=== PATIENT | male | born 1950 ===

== ENCOUNTER 2020-10-25 08:58 | Inpatient (IN) | payer OTHER, MEDICARE ==
[2020-10-25] MEDS ORDERED: ASPIRIN 325 MG TAB PO ONE (09:21)
--- NOTE | 2020-10-25 09:52 | XRay Report ---
CHEST 2 VIEWS INDICATION: SOB, CP. COMPARISON: None FINDINGS: Support devices: None. Heart: Within normal limits. Lungs/pleura: The interstitium appears diffusely prominent throughout both lungs. This may represent fibrotic changes although interstitial infiltrates or atypical pneumonia are not excluded. No pleura l effusion or pneumothorax. Additional findings: None. IMPRESSION: Prominent interstitium suggesting pulmonary fibrosis/interstitial lung disease. Bilateral infiltrates could be considered but are thought less likely. If further evaluation is warranted, CT chest with h igh-resolution protocol should provide the most information. Signer Name: Paul Sanchez Jr, MD Signed: 10/25/2020 9:48 AM Workstation Name: [id number]
[2020-10-25 11:25] LABS: Basophils % (Auto) 0.7 % (0.0-1.8); Eosinophils # (Auto) 0.2 K/mm3 (0.0-0.4); Eosinophils % (Auto) 3.9 % (0.0-4.3); Hematocrit 40.3 % (35.5-45.6); Hemoglobin 12.7 gm/dl (11.8-15.2); Lymphocytes # (Auto) 1.3 K/mm3 (1.2-5.4); Lymphocytes % (Auto) 24.7 % (13.4-35.0); Mean Corpuscular HGB Conc 32 % (32-34); Mean Corpuscular Volume 93 fl (84-94); Monocytes # (Auto) 0.8 K/mm3 (0.0-0.8); Monocytes % (Auto) 15.1 % (0.0-7.3); Platelet Count 170 K/mm3 (140-440); Red Blood Count 4.35 M/mm3 (3.65-5.03); Red Cell Distribution Width 16.2 % (13.2-15.2)
[2020-10-25 11:40] LABS: Alanine Aminotransferase 19 units/L (7-56); Albumin 3.9 g/dL (3.9-5); BUN/Creatinine Ratio 25; Blood Urea Nitrogen 25 mg/dL (9-20); Calcium 9.6 mg/dL (8.4-10.2); Hemolysis Index 33
[2020-10-25] MEDS ORDERED: oxyCODONE /ACETAMINOPHEN 5-325MG TAB PO ONE (12:25)
--- NOTE | 2020-10-25 13:49 | Emergency Department Report ---
ED Chest Pain HPI - General Chief Complaint: Dyspnea/Respdistress Stated Complaint: SOB/CHEST PAIN Time Seen by Provider: 10/25/20 13:26 Source: patient Mode of arrival: Ambulatory Limitations: No Limitations - History of Present Illness Initial Comments: This is a 69-year-old -[place] male who presents to the emergency department fom home, with a complaint of shortness of breath and chest pain. Patient was found to have a room air pulse ox of about 70% initially through triage and was placed on 5 L oxygen via nasal cannula and went up to about 95%. Patient says that he has been having a 1.5-week history of some intermittent shortness of breath. However, yesterday while the patient was fishing, the patient says that he had increased shortness of breath with only minimal exertion and had some generalized chest discomfort. The chest pain has since resolved, but the shortness of breath continues. The patient has a history of hypertension and diabetes. He also has a history of a DVT from 2016, but is not on anticoagulation. He is a former smoker. Patient recently traveled down to [facility] and back. No sick contacts at home. The patient is vaccinated against COVID-19 after getting the J&J vaccine. - Related Data Allergies Allergy/AdvReac Type Severity Reaction Status Date / Time No Known Allergies Allergy Unverified 10/25/20 09:15 Heart Score - HEART Score History: Slightly suspicious EKG: Normal Age: > 65 Risk factors: 1-2 risk factors Troponin: < normal limit HEART Score: 3 - EKG Read Time Time EKG Completed: 09:07 EKG Read Time: 09:20 - Critical Actions Critical Actions: 0-3 pts:0.9-1.7%risk of adverse cardiac event.Candidate for discharge ED Review of Systems ROS: Stated complaint: SOB/CHEST PAIN Other details as noted in HPI ED Past Medical Hx - Past Medical History Previous Medical History?: Yes Hx Hypertension: Yes Hx Diabetes: Yes Hx COPD: No Additional medical history: Gout - Surgical History Past Surgical History?: No ED Physical Exam - General Limitations: No Limitations - Other Other exam information: GENERAL: The patient is well-developed well-nourished. HENT: Normocephalic. Atraumatic. Patient has moist mucous membranes. EYES: Extraocular motions are intact. Pupils equal reactive to light bilaterally. NECK: Supple. Trachea is midline. CHEST/LUNGS: There is mild rhonchi heard bilaterally. Tachypnea but no accessory muscle use. HEART/CARDIOVASCULAR: Regular. There is no tachycardia. There is no murmur. ABDOMEN: Abdomen is soft, nontender. Patient has normal bowel sounds. There is no abdominal distention. SKIN: Skin is warm and dry. NEURO: The patient is awake, alert, and oriented. The patient is cooperative. The patient has no focal neurologic deficits. Normal speech. MUSCULOSKELETAL: There is no tenderness or deformity. There is no limitation range of motion. ED Course Vital Signs 10/25/20 10/25/20 10/25/20 09:14 13:45 14:02 Temperature 97.5 F L 98.6 F Pulse Rate 62 61 Respiratory 24 16 20 Rate Blood Pressure 125/62 Blood Pressure 138/72 [Left] O2 Sat by Pulse 81 L 98 Oximetry 10/25/20 10/25/20 10/25/20 14:03 14:31 15:01 Temperature Pulse Rate 59 L 63 Respiratory 16 11 L Rate Blood Pressure 172/103 168/85 Blood Pressure [Left] O2 Sat by Pulse 98 99 99 Oximetry 10/25/20 10/25/20 10/25/20 15:31 16:01 16:31 Temperature 98.6 F Pulse Rate 61 64 Respiratory 13 13 Rate Blood Pressure 176/101 168/90 Blood Pressure [Left] O2 Sat by Pulse 97 95 Oximetry - Pulse Oximetry Interpretation Digit-Finger Initial Pulse Oximetry Readin O2 Sat by Pulse Oximetry: 82 Actions Taken: increased FIO2 to (4 L nasal cannula) JONNY score - Jonny Score Age > 65: (1) Yes Aspirin use within the Past 7 Days: (0) No 3 or more CAD Risk Factors: (0) No 2 or more Angina events in past 24 hrs: (1) Yes Known CAD with more than 50% Stenosis: (0) No Elevated Cardiac Markers: (0) No ST Deviation Greater than 0.5mm: (0) No JONNY Score: 2 ED Medical Decision Making - Lab Data Result diagrams: 10/25/20 10:52 10/25/20 10:52 Lab Results 10/25/20 10/25/20 10/25/20 Range/Units 10:52 10:52 11:55 WBC 5.2 (4.5-11.0) K/mm3 RBC 4.35 (3.65-5.03) M/mm3 Hgb 12.7 (11.8-15.2) gm/dl Hct 40.3 (35.5-45.6) % MCV 93 (84-94) fl MCH 29 (28-32) pg MCHC 32 (32-34) % RDW 16.2 H (13.2-15.2) % Plt Count 170 (140-440) K/mm3 Lymph % (Auto) 24.7 (13.4-35.0) % Saunders % (Auto) 15.1 H (0.0-7.3) % Eos % (Auto) 3.9 (0.0-4.3) % Baso % (Auto) 0.7 (0.0-1.8) % Lymph # (Auto) 1.3 (1.2-5.4) K/mm3 Saunders # (Auto) 0.8 (0.0-0.8) K/mm3 Eos # (Auto) 0.2 (0.0-0.4) K/mm3 Baso # (Auto) 0.0 (0.0-0.1) K/mm3 Seg Neutrophils % 55.6 (40.0-70.0) % Seg Neutrophils # 2.9 (1.8-7.7) K/mm3 D-Dimer (0-234) ng/mlDDU Sodium 143 (137-145) mmol/L Potassium 5.6 H (3.6-5.0) mmol/L Chloride 108.7 H (98-107) mmol/L Carbon Dioxide 22 (22-30) mmol/L Anion Gap 18 mmol/L BUN 25 H (9-20) mg/dL Creatinine 1.0 (0.8-1.3) mg/dL Estimated GFR > 60 ml/min BUN/Creatinine Ratio 25 % Glucose 114 H (75-100) mg/dL Calcium 9.6 (8.4-10.2) mg/dL Ferritin (30.0-300.0) ng/mL Total Bilirubin 0.40 (0.1-1.2) mg/dL AST 34 (5-40) units/L ALT 19 (7-56) units/L Alkaline Phosphatase 78 (35-129) units/L Troponin T < 0.010 < 0.010 (0.00-0.029) ng/mL NT-Pro-B Natriuret Pep (0-900) pg/mL Total Protein 7.4 (6.3-8.2) g/dL Albumin 3.9 (3.9-5) g/dL Albumin/Globulin Ratio 1.1 % 10/25/20 10/25/20 10/25/20 Range/Units 14:50 14:50 15:07 WBC (4.5-11.0) K/mm3 RBC (3.65-5.03) M/mm3 Hgb (11.8-15.2) gm/dl Hct (35.5-45.6) % MCV (84-94) fl MCH (28-32) pg MCHC (32-34) % RDW (13.2-15.2) % Plt Count (140-440) K/mm3 Lymph % (Auto) (13.4-35.0) % Saunders % (Auto) (0.0-7.3) % Eos % (Auto) (0.0-4.3) % Baso % (Auto) (0.0-1.8) % Lymph # (Auto) (1.2-5.4) K/mm3 Saunders # (Auto) (0.0-0.8) K/mm3 Eos # (Auto) (0.0-0.4) K/mm3 Baso # (Auto) (0.0-0.1) K/mm3 Seg Neutrophils % (40.0-70.0) % Seg Neutrophils # (1.8-7.7) K/mm3 D-Dimer 307.40 H (0-234) ng/mlDDU Sodium (137-145) mmol/L Potassium (3.6-5.0) mmol/L Chloride (98-107) mmol/L Carbon Dioxide (22-30) mmol/L Anion Gap mmol/L BUN (9-20) mg/dL Creatinine (0.8-1.3) mg/dL Estimated GFR ml/min BUN/Creatinine Ratio % Glucose (75-100) mg/dL Calcium (8.4-10.2) mg/dL Ferritin (30.0-300.0) ng/mL Total Bilirubin (0.1-1.2) mg/dL AST (5-40) units/L ALT (7-56) units/L Alkaline Phosphatase (35-129) units/L Troponin T < 0.010 (0.00-0.029) ng/mL NT-Pro-B Natriuret Pep 737.3 (0-900) pg/mL Total Protein (6.3-8.2) g/dL Albumin (3.9-5) g/dL Albumin/Globulin Ratio % // Range/Units 16:21 WBC (4.5-11.0) K/mm3 RBC (3.65-5.03) M/mm3 Hgb (11.8-15.2) gm/dl Hct (35.5-45.6) % MCV (84-94) fl MCH (28-32) pg MCHC (32-34) % RDW (13.2-15.2) % Plt Count (140-440) K/mm3 Lymph % (Auto) (13.4-35.0) % Saunders % (Auto) (0.0-7.3) % Eos % (Auto) (0.0-4.3) % Baso % (Auto) (0.0-1.8) % Lymph # (Auto) (1.2-5.4) K/mm3 Saunders # (Auto) (0.0-0.8) K/mm3 Eos # (Auto) (0.0-0.4) K/mm3 Baso # (Auto) (0.0-0.1) K/mm3 Seg Neutrophils % (40.0-70.0) % Seg Neutrophils # (1.8-7.7) K/mm3 D-Dimer (0-234) ng/mlDDU Sodium (137-145) mmol/L Potassium (3.6-5.0) mmol/L Chloride (98-107) mmol/L Carbon Dioxide (22-30) mmol/L Anion Gap mmol/L BUN (9-20) mg/dL Creatinine (0.8-1.3) mg/dL Estimated GFR ml/min BUN/Creatinine Ratio % Glucose (75-100) mg/dL Calcium (8.4-10.2) mg/dL Ferritin 51.1 (30.0-300.0) ng/mL Total Bilirubin (0.1-1.2) mg/dL AST (5-40) units/L ALT (7-56) units/L Alkaline Phosphatase (35-129) units/L Troponin T (0.00-0.029) ng/mL NT-Pro-B Natriuret Pep (0-900) pg/mL Total Protein (6.3-8.2) g/dL Albumin (3.9-5) g/dL Albumin/Globulin Ratio % - EKG Data -: EKG Interpreted by Me EKG shows normal: sinus rhythm, axis, intervals, QRS complexes, ST-T waves Rate: normal - EKG Data When compared to previous EKG there are: previous EKG unavailable Interpretation: normal EKG - Radiology Data Radiology results: report reviewed CHEST 2 VIEWS INDICATION: SOB, CP. COMPARISON: None FINDINGS: Support devices: None. Heart: Within normal limits. Lungs/pleura: The interstitium appears diffusely prominent throughout both lungs. This may represent fibrotic changes although interstitial infiltrates or atypical pneumonia are not excluded. No pleural effusion or pneumothorax. Additional findings: None. IMPRESSION: Prominent interstitium suggesting pulmonary fibrosis/interstitial lung disease. Bilateral infiltrates could be considered but are thought less likely. If further evaluation is warranted, CT chest with high-resolution protocol should provide the most information. CTA CHEST WITH IV CONTRAST INDICATION: SOB, elevated dimer CONTRAST: 100 cc Omnipaque 350 IV COMPARISON: Chest x-ray today Three-plane MIP reconstructions were produced. All CT scans at this location are performed using CT dose reduction for ALARA by means of automated exposure control. FINDINGS: No significant axillary or chest wall abnormalities are seen. Visualized portions of the upper abdomen show fatty attrition of the liver but no obvious acute abnormalities. Moderate hiatal hernia is seen. Moderate lymphadenopathy is noted throughout the mediastinum but most prominently in the right paratracheal region. Mild left hilar nadine prominence is seen with moderate right hilar nadine prominence. No obvious endobronchial lesions are seen. No pneumothorax or pneumomediastinum are noted. Views of the lung martins show moderately prominent and extensive bilateral chronic pulmonary changes. This includes mostly periphe ral emphysematous change as well as a moderate amount of peripheral honeycombing and fibrosis. Mild fibrosis is seen more centrally as well. Mild bronchiectasis is seen, most prominently in the right lower lobe. No areas of consolidation are seen. There are mild patchy areas of groundglass type density which are most noticeable in the right upper lobe and especially in these areas I cannot exclude the possibility of superimposed interstitial infiltrate/pneumonitis. In the lateral periphery of the left upper lobe on image 198 of series 3, a solid nodule is seen measuring 8 mm adjacent to the pleural surface. No other discrete nodules or masses are seen. Aorta shows no aneurysmal dilatation or evidence of dissection. Moderate opacification of the pulmonary arterial system was achieved. I do not see evidence of pulmonary thromboembolism. IMPRESSION: 1. No evidence of pulmonary thromboembolism 2. Moderate chronic pulmonary changes as above 3. Question of superimposed right upper lobe interstitial infiltrate which could include viral pneumonitis but is nonspecific and of unclear chronicity 4. Moderate adenopathy is seen in the mediastinum and right hilum with mild adenopathy in the left hilum. Possibly this is reactive though might suggest a process such as sarcoidosis. Neoplasia such as lymphoma is not fully excluded. Follow-up is recommended. - Medical Decision Making This patient presents to the emergency department with a complaint of pr ogressively worsening shortness of breath over the past 1.5 weeks and an episode of chest pain yesterday. He was found to be hypoxic through triage at about 70%. He went up to 95% with 5 L via nasal cannula. When the patient came back to room #7, at the time of my initial examination, the patient once again did not have supplemental oxygen on and was seen at 80 to 82%. The patient went up to 94% on 4 L via nasal cannula. Chest x-ray shows bilateral interstitial changes that could be opacities versus fibrosis versus other. Given his symptoms and his hypoxia, and despite the fact that he was vaccinated by [employer] vaccine, the patient was placed in droplet precautions and patient isolation. Patient's labs have been mostly unremarkable except for hyperkalemia of 5.6, a slightly elevated D-dimer level and slightly elevated LDH. The patient was given some Kayexalate, Decadron and IV antibiotics. He will be admitted to the hospital for further evaluation and treatment and was accepted for patient by the hospitalist, Dr. Toscano. Critical Care Time: Yes Critical care time in (mins) excluding proc time.: 35 Critical care attestation.: If time is entered above; I have spent that time in minutes in the direct care of this critically ill patient, excluding procedure time. Critical care time was spent on this patient in doing his initial evaluation, multiple reevaluations, ordering and interpretation of labs and imaging, IV Decadron, IV antibiotics, supplemental oxygen for the hypoxia, multiple discussions with the patient. Critical Care Time: 35 minutes ED Disposition Clinical Impression: Hypoxia, Acute respiratory distress, Hyperkalemia Hypertension Qualifiers: Hypertension type: primary hypertension Qualified Code(s): I10 - Essential (primary) hypertension Disposition: OP ADMIT IP TO THIS HOSP Is pt being admited?: Yes Condition: Serious Time of Disposition: 18:06
[2020-10-25] MEDS ORDERED: dexAMETHasone 4 MG/ML VIAL IV ONE (14:46)
[2020-10-25] MEDS ORDERED: IPRATROPIUM/ALBUTEROL SULFATE 3 ML AMPUL.NEB IH ONE (14:46)
[2020-10-25] MEDS ORDERED: cefTRIAXone/NS 1 GM/50 ML 1 GM/50 ML BAG IV ONE (14:47)
[2020-10-25] MEDS ORDERED: AZITHROMYCIN/NS 500 MG/250 ML 500 MG/250 ML BAG IV ONE (14:47)
[2020-10-25] MEDS ORDERED: SODIUM POLYSTYRENE 15 GM/60 ML ORAL LIQD PO ONE (16:07)
[2020-10-25] MEDS ORDERED: oxyCODONE /ACETAMINOPHEN 5-325MG TAB PO PRN (17:07)
[2020-10-25] MEDS ORDERED: ALBUTEROL 2.5 MG/3 ML NEBU IH PRN (17:07)
[2020-10-25] MEDS ORDERED: ONDANSETRON 4 MG/2 ML INJ IV PRN (17:07)
[2020-10-25] MEDS ORDERED: HYDROmorphone 1 MG/1 ML INJ IV PRN (17:07)
[2020-10-25] MEDS ORDERED: ACETAMINOPHEN 325 MG TAB PO PRN (17:07)
--- NOTE | 2020-10-25 17:10 | History and Physical Report ---
History of Present Illness Chief complaint: I cannot catch my breath History of present illness: 69 YO Male with Obesity Hypoventilation Syndrome, HTN, DM, Gout, DVT no on therapeutic anticoagulation presents to ED for evaluation. Pt reports " I cannot catch my breath". Patient states that he has experienced shortness of breath over the past 10 days with persistently worsening symptoms over the same timeframe. Patient acknowledges decreased exercise tolerance, dry cough, fatigue, malaise, decreased exercise tolerance, as well as chest discomfort. Patient transported to [facility] via private vehicle for further care and evaluation of the aforementioned symptoms. The patient is seen and evaluated in the emergency department. All lab and imaging studies reviewed. Patient found to have a pulse oximetry of 76% on room air and was immediately placed on supplemental oxygen with mild improvement in symptoms and pulse oximetry. Patient underwent chest x-ray which revealed bilateral pneumonia. Patient admitted to medical floor and initiated on pneumonia protocol as well as coronavirus protocol. Patient denies fever, chills, palpitation, skin rash, recent ill contacts, or known exposure to COVID-19. Patient is currently fully vaccinated after receiving the [employer] vaccine. No prior admission fo r review. No medication listed for reconciliation at time of admission. Advanced care planning conducted in ED. Past History Past Medical History: diabetes, DVT, hypertension, other (See HPI) Past Surgical History: No surgical history Social history: . denies: smoking, alcohol abuse, prescription drug abuse Family history: diabetes, hypertension Medications and Allergies Allergies Allergy/AdvReac Type Severity Reaction Status Date / Time No Known Allergies Allergy Unverified 10/25/20 09:15 Active Meds: Active Medications Acetaminophen (Acetaminophen 325 Mg Tab) 650 mg PO Q4H PRN PRN Reason: Pain MILD(1-3)/Fever >100.5/SCHMIDT Albuterol (Albuterol 2.5 Mg/3 Ml Nebu) 2.5 mg IH Q4HRT PRN PRN Reason: Shortness Of Breath Hydromorphone HCl (Hydromorphone 1 Mg/1 Ml Inj) 0.5 mg IV Q12H PRN PRN Reason: Pain , Severe (7-10) Ceftriaxone Sodium (Rocephin/Ns 2 Gm/100 Ml) 2 gm in 100 mls @ 200 mls/hr IV Q24H BETSY; Protocol Azithromycin (Zithromax/Ns) 500 mg in 250 mls @ 250 mls/hr IV Q24H BETSY; P rotocol Ondansetron HCl (Ondansetron 4 Mg/2 Ml Inj) 4 mg IV Q8H PRN PRN Reason: Nausea And Vomiting Oxycodone/Acetaminophen (Oxycodone /Acetaminophen 5-325mg Tab) 1 tab PO Q12H PRN PRN Reason: Pain, Moderate (4-6) Sodium Chloride (Sodium Chloride 0.9% 10 Ml Flush Syringe) 10 ml IV BID BETSY Sodium Chloride (Sodium Chloride 0.9% 10 Ml Flush Syringe) 10 ml IV PRN PRN PRN Reason: LINE FLUSH Review of Systems Constitutional: weakness, malaise, lethargy, no weight loss, no sweats Ears, nose, mouth and throat: no ear pain, no decreased hearing, no nose pain, no nasal congestion, no nasal discharge Cardiovascular: no chest pain, no palpitations, no edema Respiratory: cough, shortness of breath, no excessive sputum, no hemoptysis Gastrointestinal: no abdominal pain, no nausea, no vomiting, no diarrhea Genitourinary Male: no hematuria, no flank pain, no discharge, no urinary frequency Rectal: no pain, no incontinence, no bleeding Musculoskeletal: no neck stiffness, no neck pain, no arm numbness/tingling, no low back pain, no shooting leg pain Integumentary: no rash, no pruritis, no sores, no jaundice Neurological: no head injury, no parathesias, no numbness, no seizures, no syncope Psychiatric: no anxiety, no change in sleep habits, no sleep disturbances, no insomnia, no change in appetite, no change in libido, no disorientation Endocrine: no cold intolerance, no polyphagia, no polyuria Hematologic/Lymphatic: no easy bruising, no easy bleeding, no lymphadenopathy Allergic/Immunologic: no urticaria, no persistent infections Exam - Constitutional Vitals: Temp Pulse Resp BP Pulse Ox 98.6 F 64 13 168/90 95 10/25/20 16:31 10/25/20 16:01 10/25/20 16:01 10/25/20 16:01 10/25/20 16:01 General appearance: Present: mild distress, obese - EENT Eyes: Present: PERRL ENT: hearing intact, clear oral mucosa - Neck Neck: Present: supple, normal ROM - Respiratory Respiratory effort: normal, labored, accessory muscle use Respiratory: bilateral: diminished, rhonchi - Cardiovascular Heart Sounds: Present: S1 & S2. Absent: rub, click - Extremities Extremities: pulses symmetrical, No edema Peripheral Pulses: within normal limits - Abdominal General gastrointestinal: Present: soft, non-tender, non-distended, normal bowel sounds Male genitourinary: Present: normal - Integumentary Integumentary: Present: clear, warm, dry - Musculoskeletal Musculoskeletal: gait normal, strength equal bilaterally - Psychiatric Psychiatric: appropriate mood/affect, intact judgment & insight - Neurologic Neurologic: CNII-XII intact, moves all extremities HEART Score - HEART Score EKG: Normal Age: > 65 Risk factors: 1-2 risk factors Troponin: Troponin T < 0.010 ng/mL (0.00-0.029) 10/25/20 15:07 Troponin: < normal limit - Critical Actions Critical Actions: 0-3 pts:0.9-1.7%risk of adverse cardiac event.Candidate for discharge Results - Labs CBC & Chem 7: 10/25/20 10:52 10/25/20 10:52 Labs: Abnormal lab results 10/25/20 10/25/20 10/25/20 Range/Units 10:52 10:52 14:50 RDW 16.2 H (13.2-15.2) % Coleman % (Auto) 15.1 H (0.0-7.3) % D-Dimer 307.40 H (0-234) ng/mlDDU Potassium 5.6 H (3.6-5.0) mmol/L Chloride 108.7 H (98-107) mmol/L BUN 25 H (9-20) mg/dL Glucose 114 H (75-100) mg/dL Assessment and Plan - Patient Problems (1) Acute respiratory failure Current Visit: Yes Status: Acute Qualifiers: Respiratory failure complication: hypoxia Qualified Code(s): J96.01 - Acute respiratory failure with hypoxia Plan to address problem: Chest x-ray, supplemental oxygen, pulse oximetry, nebulizer therapy, CTA chest, noninvasive positive pressure ventilation as clinically indicated. (2) Suspected 2019 novel coronavirus infection Current Visit: Yes Status: Acute Plan to address problem: Coronavirus protocol: Chest x-ray, CBC, CMP, IV antibiotic therapy, IV steroid therapy, vitamin C therapy, vitamin D therapy, zinc therapy, prone positioning while in bed, coronavirus PCR ordered and is pending at time of admission (3) Pneumonia Current Visit: Yes Status: Acute Plan to address problem: Pneumonia protocol: Chest x-ray, CBC, CMP, IV steroid therapy, IV antibiotic t herapy, supplemental oxygen, pulse oximetry, blood culture. (4) Obesity hypoventilation syndrome Current Visit: Yes Status: Acute Plan to address problem: Balanced diet, increase physical activity at discharge, outpatient pulmonary follow-up for sleep study (5) HTN (hypertension) Current Visit: Yes Status: Acute Qualifiers: Hypertension type: primary hypertension Qualified Code(s): I10 - Essential (primary) hypertension Plan to address problem: Monitor blood pressure every shift, continue medical management (6) Diabetes Current Visit: Yes Status: Acute Plan to address problem: Consistent carbohydrate diet, Accu-Chek, hypoglycemia protocol, insulin protocol. (7) DVT prophylaxis Current Visit: Yes Status: Acute Plan to address problem: SCD to bilateral lower extremities while in bed, prophylactic anticoagulation (8) Advance care planning Current Visit: Yes Status: Acute Plan to address problem: Disease education conducted, care plan discussed, diagnoses discussed, prognosis discussed, patient knowledges understanding and agreement with care plan, patient is full code, +30 minutes.
--- NOTE | 2020-10-25 17:33 | Cat Scan Report ---
CTA CHEST WITH IV CONTRAST INDICATION: SOB, elevated dimer CONTRAST: 100 cc Omnipaque 350 IV COMPARISON: Chest x-ray today Three-plane MIP reconstructions were produced. All CT scans at this location are performed using CT d ose reduction for ALARA by means of automated exposure control. FINDINGS: No significant axillary or chest wall abnormalities are seen. Visualized portions of the up per abdomen show fatty attrition of the liver but no obvious acute abnormalities. Moderate hiatal her hillary is seen. Moderate lymphadenopathy is noted throughout the mediastinum but most prominently in the right paratracheal region. Mild left hilar nadine prominence is seen with moderate right hilar nadine prominence. No obvious endobronchial lesions are seen. No pneumothorax or pneumomediastinum are noted . Views of the lung martins show moderately prominent and extensive bilateral chronic pulmonary changes. This includes mostly peripheral emphysematous change as well as a moderate amount of peripheral janeth ycombing and fibrosis. Mild fibrosis is seen more centrally as well. Mild bronchiectasis is seen, mos t prominently in the right lower lobe. No areas of consolidation are seen. There are mild patchy area s of groundglass type density which are most noticeable in the right upper lobe and especially in the se areas I cannot exclude the possibility of superimposed interstitial infiltrate/pneumonitis. In the lateral periphery of the left upper lobe on image 198 of series 3, a solid nodule is seen measuring 8 mm adjacent to the pleural surface. No other discrete nodules or masses are seen. Aorta shows no aneurysmal dilatation or evidence of dissection. Moderate opacification of the pulmonary arterial system was achieved. I do not see evidence of pulmon kathleen thromboembolism. IMPRESSION: 1. No evidence of pulmonary thromboembolism 2. Moderate chronic pulmonary changes as above 3. Question of superimposed right upper lobe interstitial infiltrate which could include viral pneumo nitis but is nonspecific and of unclear chronicity 4. Moderate adenopathy is seen in the mediastinum and right hilum with mild adenopathy in the left hi lum. Possibly this is reactive though might suggest a process such as sarcoidosis. Neoplasia such as lymphoma is not fully excluded. Follow-up is recommended. Signer Name: Jose Alva MD Signed: 10/25/2020 5:28 PM Workstation Name: [id number]
[2020-10-25 17:40] LABS: C-Reactive Protein 0.6 mg/dL (0.00-1.30)
[2020-10-25] MEDS: methylPREDNISolone Sod Succinate 40 MG/1 ML INJ IV SCH (18:48)
[2020-10-25] MEDS: HEPARIN 5,000 UNIT/1 ML VIAL SUB-Q SCH (22:08)
[2020-10-25] MEDS: ASCORBIC ACID 500 MG TAB PO SCH (22:08)
[2020-10-25] MEDS: ZINC SULFATE 220 MG CAP PO SCH (22:08)
[2020-10-26] MEDS: methylPREDNISolone Sod Succinate 40 MG/1 ML INJ IV SCH ×3 (02:39→18:30)
[2020-10-26] MEDS: cefTRIAXone/NS 2 GM/100 ML 2 GM/100 ML BAG IV SCH (02:39)
[2020-10-26 05:31] LABS: Basophils % (Auto) 0.1 % (0.0-1.8); Hematocrit 39.5 % (35.5-45.6); Hemoglobin 12.6 gm/dl (11.8-15.2); Lymphocytes # (Auto) 0.6 K/mm3 (1.2-5.4); Lymphocytes % (Auto) 15.3 % (13.4-35.0); Mean Corpuscular HGB Conc 32 % (32-34); Mean Corpuscular Volume 93 fl (84-94); Monocytes # (Auto) 0.1 K/mm3 (0.0-0.8); Monocytes % (Auto) 2.9 % (0.0-7.3); Platelet Count 164 K/mm3 (140-440); Red Blood Count 4.25 M/mm3 (3.65-5.03); Red Cell Distribution Width 15.9 % (13.2-15.2)
[2020-10-26 05:52] LABS: Blood Urea Nitrogen 18 mg/dL (9-20); Calcium 9.3 mg/dL (8.4-10.2); Hemolysis Index 6
[2020-10-26 05:59] LABS: BUN/Creatinine Ratio 26
--- NOTE | 2020-10-26 09:17 | Progress Note ---
Assessment and Plan Assessment and plan: 69 YO Male with Obesity Hypoventilation Syndrome, HTN, DM, Gout, DVT no on therapeutic anticoagulation presents to ED for evaluation. Pt reports " I cannot catch my breath". Patient states that he has experienced shortness of breath over the past 10 days with persistently worsening symptoms over the same timeframe. Patient acknowledges decreased exercise tolerance, dry cough, fatigue, malaise, decreased exercise tolerance, as well as chest discomfort. Patient transported to [facility] via private vehicle for further care and evaluation of the aforementioned symptoms. The patient is seen and evaluated in the emergency department. All lab and imaging studies reviewed. Patient found to have a pulse oximetry of 76% on room air and was immediately placed on supplemental oxygen with mild improvement in symptoms and pulse oximetry. Patient underwent chest x-ray which revealed bilateral pneumonia. Patient admitted to medical floor and initiated on pneumonia protocol as well as coronavirus protocol. Patient denies fever, chills, palpitation, skin rash, recent ill contacts, or known exposure to COVID-19. Patient is currently fully vaccinated after receiving the [employer] vaccine. No prior admission for review. No medication listed for reconciliation at time of admission. Advanced care planning conducted in ED. (1) Acute respiratory failure Current Visit: Yes Status: Acute Qualifiers: Respiratory failure complication: hypoxia Qualified Code(s): J96.01 - Acute respiratory failure with hypoxia Plan to address problem: Chest x-ray, supplemental oxygen, pulse oximetry, nebulizer therapy, CTA chest, noninvasive positive pressure ventilation as clinically indicated. (2) Suspected 2019 novel coronavirus infection Current Visit: Yes Status: Acute Plan to address problem: Coronavirus protocol: Chest x-ray, CBC, CMP, IV antibiotic therapy, IV steroid therapy, vitamin C therapy, vitamin D therapy, zinc therapy, prone positioning while in bed, coronavirus PCR ordered and is pending at time of admission (3) Pneumonia Current Visit: Yes Status: Acute Plan to address problem: Pneumonia protocol: Chest x-ray, CBC, CMP, IV steroid therapy, IV antibiotic therapy, supplemental oxygen, pulse oximetry, blood culture. (4) Obesity hypoventilation syndrome Current Visit: Yes Status: Acute Plan to address problem: Balanced diet, increase physical activity at discharge, outpatient pulmonary follow-up for sleep study (5) HTN (hypertension) Current Visit: Yes Status: Acute Qualifiers: Hypertension type: primary hypertension Qualified Code(s): I10 - Essential (primary) hypertension Plan to address problem: Monitor blood pressure every shift, continue medical management (6) Diabetes Current Visit: Yes Status: Acute Plan to address problem: Consistent carbohydrate diet, Accu-Chek, hypoglycemia protocol, insulin protocol. (7) DVT prophylaxis Current Visit: Yes Status: Acute Plan to address problem: SCD to bilateral lower extremities while in bed, prophylactic anticoagulation (8) Advance care planning Current Visit: Yes Status: Acute Plan to address problem: Disease education conducted, care plan discussed, diagnoses discussed, prognosis discussed, patient knowledges understanding and agreement with care plan, patient is full code, +30 minutes. 10/26; I have seen and evaluated the patient. Patient did not have any seizure after admission. Patient was alert this morning. He ate his breakfast. I called his mother Tamy and she told me that he had seizure because he ran out of his medications and patient will get his medications tomorrow from Medicaid/Medicare. I called case management and discussed with her to give him 2 doses of medications, tonight and tomorrow does and he can go home and get his medications refills tomorrow. History Interval history: Patient was seen and evaluated this morning Patient said he is okay He ate breakfast, no seizure after admission Hospitalist Physical - Physical exam Narrative exam: Not in cardiopulmonary distress. The patient appeared well nourished and normally developed. Vital signs as documented. Head exam is unremarkable. No scleral icterus . Neck is without jugular venous distension, thyromegaly, or carotid bruits. Lungs are clear to auscultation. Cardiac exam reveals regular rate and Rhythm. Abdominal exam reveals normal bowel sounds, nontender, no organomegaly. Extremities are nonedematous and both femoral and pedal pulses are normal. 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 - Constitutional Vitals: Temp Pulse Resp BP Pulse Ox 97.4 F L 77 14 138/80 98 10/25/20 18:50 10/26/20 08:01 10/26/20 08:01 10/26/20 08:01 10/26/20 08:01 General appearance: Present: mild distress, obese HEART Score - HEART Score EKG: Normal Age: > 65 Risk factors: 1-2 risk factors Troponin: Troponin T < 0.010 ng/mL (0.00-0.029) 10/25/20 15:07 Troponin: < normal limit - Critical Actions Critical Actions: 0-3 pts:0.9-1.7%risk of adverse cardiac event.Candidate for discharge Results - Labs CBC & Chem 7: 10/26/20 05:13 10/26/20 05:13 Labs: Laboratory Last Values WBC 4.2 K/mm3 (4.5-11.0) L 10/26/20 05:13 RBC 4.25 M/mm3 (3.65-5.03) 10/26/20 05:13 Hgb 12.6 gm/dl (11.8-15.2) 10/26/20 05:13 Hct 39.5 % (35.5-45.6) 10/26/20 05:13 MCV 93 fl (84-94) 10/26/20 05:13 MCH 30 pg (28-32) 10/26/20 05:13 MCHC 32 % (32-34) 10/26/20 05:13 RDW 15.9 % (13.2-15.2) H 10/26/20 05:13 Plt Count 164 K/mm3 (140-440) 10/26/20 05:13 Lymph % (Auto) 15.3 % (13.4-35.0) 10/26/20 05:13 [place] % (Auto) 2.9 % (0.0-7.3) 10/26/20 05:13 Eos % (Auto) 0.0 % (0.0-4.3) 10/26/20 05:13 Baso % (Auto) 0.1 % (0.0-1.8) 10/26/20 05:13 Lymph # (Auto) 0.6 K/mm3 (1.2-5.4) L 10/26/20 05:13 [place] # (Auto) 0.1 K/mm3 (0.0-0.8) 10/26/20 05:13 Eos # (Auto) 0.0 K/mm3 (0.0-0.4) 10/26/20 05:13 Baso # (Auto) 0.0 K/mm3 (0.0-0.1) 10/26/20 05:13 Seg Neutrophils % 81.7 % (40.0-70.0) H 10/26/20 05:13 Seg Neutrophils # 3.4 K/mm3 (1.8-7.7) 10/26/20 05:13 D-Dimer 307.40 ng/mlDDU (0-234) H 10/25/20 14:50 Sodium 144 mmol/L (137-145) 10/26/20 05:13 Potassium 4.7 mmol/L (3.6-5.0) 10/26/20 05:13 Chloride 109.1 mmol/L (98-107) H 10/26/20 05:13 Carbon Dioxide 23 mmol/L (22-30) 10/26/20 05:13 Anion Gap 17 mmol/L 10/26/20 05:13 BUN 18 mg/dL (9-20) 10/26/20 05:13 Creatinine 0.7 mg/dL (0.8-1.3) L 10/26/20 05:13 Estimated GFR > 60 ml/min 10/26/20 05:13 BUN/Creatinine Ratio 26 % 10/26/20 05:13 Glucose 202 mg/dL (75-100) H 10/26/20 05:13 Calcium 9.3 mg/dL (8.4-10.2) 10/26/20 05:13 Ferritin 51.1 ng/mL (30.0-300.0) 10/25/20 16:21 Total Bilirubin 0.40 mg/dL (0.1-1.2) 10/25/20 10:52 AST 34 units/L (5-40) 10/25/20 10:52 ALT 19 units/L (7-56) 10/25/20 10:52 Alkaline Phosphatase 78 units/L (35-129) 10/25/20 10:52 Lactate Dehydrogenase 235 units/L (91-180) H 10/25/20 16:21 Troponin T < 0.010 ng/mL (0.00-0.029) 10/25/20 15:07 C-Reactive Protein 0.60 mg/dL (0.00-1.30) 10/25/20 16:21 NT-Pro-B Natriuret Pep 737.3 pg/mL (0-900) 10/25/20 14:50 Total Protein 7.4 g/dL (6.3-8.2) 10/25/20 10:52 Albumin 3.9 g/dL (3.9-5) 10/25/20 10:52 Albumin/Globulin Ratio 1.1 % 10/25/20 10:52 Microbiology: Microbiology 10/25/20 15:07 Peripheral/Venous Blood Culture - Preliminary Culture in Progress 10/25/20 15:07 Peripheral/Venous Blood Culture - Preliminary Culture in Progress Active Medications - Current Medications Current Medications: Generic Name Dose Route Start Last Admin Trade Name Freq PRN Reason Stop Dose Admin Acetaminophen 650 mg 10/25/20 17:07 Acetaminophen 325 Mg Tab PO Q4H PRN Pain MILD(1-3)/Fever >100.5/SCHMIDT Albuterol 2.5 mg 10/25/20 17:07 Albuterol 2.5 Mg/3 Ml Nebu IH Q4HRT PRN Shortness Of Breath Ascorbic Acid 500 mg 10/25/20 22:00 10/25/20 22:08 Ascorbic Acid 500 Mg Tab PO 500 mg BID BETSY Administration Cholecalciferol 1,000 unit 10/26/20 10:00 Cholecalciferol (Vit D3) 1000 Unit (25 Mcg) Tab PO QDAY BETSY Heparin Sodium (Porcine) 5,000 unit 10/25/20 22:00 10/25/20 22:08 Heparin 5,000 Unit/1 Ml Vial SUB-Q 5,000 unit Q12HR BETSY Administration Hydromorphone HCl 0.5 mg 10/25/20 17:07 Hydromorphone 1 Mg/1 Ml Inj IV Q12H PRN Pain , Severe (7-10) Ceftriaxone Sodium 2 gm in 100 mls @ 200 mls/hr 10/26/20 03:00 10/26/20 02:39 Rocephin/Ns 2 Gm/100 Ml IV 10/29/20 14:59 200 mls/hr Q24H BETSY Administration Protocol Azithromycin 500 mg in 250 mls @ 250 mls/hr 10/26/20 14:00 Zithromax/Ns IV 10/29/20 14:59 Q24H BETSY Protocol Methylprednisolone Sodium Succinate 40 mg 10/25/20 18:00 10/26/20 02:39 Methylprednisolone Sod Succinate 40 Mg/1 Ml Inj IV 40 mg Q8H BETSY Administration Ondansetron HCl 4 mg 10/25/20 17:07 Ondansetron 4 Mg/2 Ml Inj IV Q8H PRN Nausea And Vomiting Oxycodone/Acetaminophen 1 tab 10/25/20 17:07 Oxycodone /Acetaminophen 5-325mg Tab PO Q12H PRN Pain, Moderate (4-6) Sodium Chloride 10 ml 10/25/20 22:00 10/25/20 22:12 Sodium Chloride 0.9% 10 Ml Flush Syringe IV 10 ml BID BETSY Administration Sodium Chloride 10 ml 10/25/20 17:07 Sodium Chloride 0.9% 10 Ml Flush Syringe IV PRN PRN LINE FLUSH Zinc Sulfate 220 mg 10/25/20 22:00 10/25/20 22:08 Zinc Sulfate 220 Mg Cap PO 220 mg BID BETSY Administration
--- NOTE | 2020-10-26 10:17 | Electrocardiograph Report ---
[facility] Test Date: 2020-10-25 Test Time: 09:07:30 Pat Name: MILO WOODS Department: Room: [facility] Gender: M Cardiac Surgeon: SARAH : 1950 Requested By: ED DOC Order Number: [id number] Reading MD: Alex Moore Measurements Intervals [place] Rate: 65 P: 43 IN: 174 QRS: -9 QRSD: 89 T: QT: 382 QTc: 397 Interpretive Statements Sinus rhythm No previous ECG available for comparison Electronically Signed On 10-26-2020 10:16:44 EDT by Alex Moore
[2020-10-26] MEDS: CHOLECALCIFEROL (VIT D3) 1000 UNIT (25 mcg) TAB PO SCH (11:38)
[2020-10-26] MEDS: ZINC SULFATE 220 MG CAP PO SCH ×2 (11:38→22:15)
[2020-10-26] MEDS: HEPARIN 5,000 UNIT/1 ML VIAL SUB-Q SCH ×2 (11:38→22:15)
[2020-10-26] MEDS: ASCORBIC ACID 500 MG TAB PO SCH ×2 (11:39→22:15)
[2020-10-26] MEDS: AZITHROMYCIN/NS 500 MG/250 ML 500 MG/250 ML BAG IV SCH (13:38)
[2020-10-27] MEDS: methylPREDNISolone Sod Succinate 40 MG/1 ML INJ IV SCH ×3 (02:32→20:50)
[2020-10-27] MEDS: cefTRIAXone/NS 2 GM/100 ML 2 GM/100 ML BAG IV SCH (02:32)
[2020-10-27 09:08] LABS: Blood Urea Nitrogen 14 mg/dL (9-20); Calcium 9.7 mg/dL (8.4-10.2); Hemolysis Index 3
[2020-10-27] MEDS: ASCORBIC ACID 500 MG TAB PO SCH ×2 (09:32→21:31)
[2020-10-27] MEDS: HEPARIN 5,000 UNIT/1 ML VIAL SUB-Q SCH ×2 (09:32→21:32)
[2020-10-27] MEDS: ZINC SULFATE 220 MG CAP PO SCH ×2 (09:32→21:31)
[2020-10-27] MEDS: CHOLECALCIFEROL (VIT D3) 1000 UNIT (25 mcg) TAB PO SCH (09:32)
[2020-10-27 09:38] LABS: BUN/Creatinine Ratio 20
--- NOTE | 2020-10-27 10:20 | Discharge Summary ---
Providers - Providers Date of Admission: 10/25/20 17:07 Date of discharge: 10/27/20 Attending physician: KAREN ESTRADA MD Hospitalization Reason for admission: pneumonitis Condition: Serious Disposition: DC-01 TO HOME OR SELFCARE Final Discharge Diagnosis (Prints w/discharge instructions): Pneumonits. Acute respiratory failure Time spent for discharge: 25 MINUTES - Discharge Diagnoses (1) Acute respiratory failure Status: Acute Qualifiers: Respiratory failure complication: hypoxia Qualified Code(s): J96.01 - Acute respiratory failure with hypoxia (2) Diabetes Status: Acute Qualifiers: Diabetes mellitus type: type 2 (3) HTN (hypertension) Status: Acute Qualifiers: Hypertension type: primary hypertension Qualified Code(s): I10 - Essential (primary) hypertension (4) Hyperkalemia Status: Acute (5) Hypertension Status: Acute Qualifiers: Hypertension type: primary hypertension Qualified Code(s): I10 - Essential (primary) hypertension Core Measure Documentation - Palliative Care Palliative Care/ Comfort Measures: Not Applicable - Core Measures Any of the following diagnoses?: none Exam - Physical Exam Narrative exam: Not in cardiopulmonary distress. The patient appeared well nourished and normally developed. Vital signs as documented. Head exam is unremarkable. No scleral icterus . Neck is without jugular venous distension, thyromegaly, or carotid bruits. Lungs are clear to auscultation. Cardiac exam reveals regular rate and Rhythm. Abdominal exam reveals normal bowel sounds, nontender, no organomegaly. Extremities are nonedematous and both femoral and pedal pulses are normal. 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 - Constitutional Vitals: Temp Pulse Resp BP Pulse Ox 98.4 F 72 16 125/60 97 10/27/20 03:52 10/27/20 03:52 10/27/20 03:52 10/27/20 03:52 10/27/20 03:52 Plan Activity: no restrictions Weight Bearing Status: Full Weight Bearing Diet: low salt, diabetic Follow up with: LESLEY YANG [Other] - 7 Days
--- NOTE | 2020-10-27 10:35 | Electrocardiograph Report ---
[facility] Test Date: 2020-10-27 Test Time: 07:36:22 Pat Name: MILO WOODS Department: Room: A379 1 Gender: M Supervisor Blood: ALIA : 1950 Requested By: WAGNER BLAIR Order Number: [id number] Reading MD: Alex Moore Measurements Intervals [place] Rate: 71 P: 23 IN: 172 QRS: -6 QRSD: 86 T: 5 QT: 536 QTc: 582 Interpretive Statements Sinus rhythm Prolonged QT interval Compared to ECG 10/25/2020 09:07:30 Prolonged QT interval now present Electronically Signed On 10-27-2020 10:34:53 EDT by Alex Moore
--- NOTE | 2020-10-27 14:42 | Progress Note ---
Assessment and Plan Assessment and plan: 69 YO Male with Obesity Hypoventilation Syndrome, HTN, DM, Gout, DVT no on therapeutic anticoagulation presents to ED for evaluation. Pt reports " I cannot catch my breath". Patient states that he has experienced shortness of breath over the past 10 days with persistently worsening symptoms over the same timeframe. Patient acknowledges decreased exercise tolerance, dry cough, fatigue, malaise, decreased exercise tolerance, as well as chest discomfort. Patient transported to [facility] via private vehicle for further care and evaluation of the aforementioned symptoms. The patient is seen and evaluated in the emergency department. All lab and imaging studies reviewed. Patient found to have a pulse oximetry of 76% on room air and was immediately placed on supplemental oxygen with mild improvement in symptoms and pulse oximetry. Patient underwent chest x-ray which revealed bilateral pneumonia. Patient admitted to medical floor and initiated on pneumonia protocol as well as coronavirus protocol. Patient denies fever, chills, palpitation, skin rash, recent ill contacts, or known exposure to COVID-19. Patient is currently fully vaccinated after receiving the [employer] vaccine. No prior admission for review. No medication listed for reconciliation at time of admission. Advanced care planning conducted in ED. (1) Acute respiratory failure Current Visit: Yes Status: Acute Qualifiers: Respiratory failure complication: hypoxia Qualified Code(s): J96.01 - Acute respiratory failure with hypoxia Plan to address problem: Chest x-ray, supplemental oxygen, pulse oximetry, nebulizer therapy, CTA chest, noninvasive positive pressure ventilation as clinically indicated. (2) Suspected 2019 novel coronavirus infection Current Visit: Yes Status: Acute Plan to address problem: Coronavirus protocol: Chest x-ray, CBC, CMP, IV antibiotic therapy, IV steroid therapy, vitamin C therapy, vitamin D therapy, zinc therapy, prone positioning while in bed, coronavirus PCR ordered and is pending at time of admission (3) Pneumonia Current Visit: Yes Status: Acute Plan to address problem: Pneumonia protocol: Chest x-ray, CBC, CMP, IV steroid therapy, IV antibiotic therapy, supplemental oxygen, pulse oximetry, blood culture. (4) Obesity hypoventilation syndrome Current Visit: Yes Status: Acute Plan to address problem: Balanced diet, increase physical activity at discharge, outpatient pulmonary follow-up for sleep study (5) HTN (hypertension) Current Visit: Yes Status: Acute Qualifiers: Hypertension type: primary hypertension Qualified Code(s): I10 - Essential (primary) hypertension Plan to address problem: Monitor blood pressure every shift, continue medical management (6) Diabetes Current Visit: Yes Status: Acute Plan to address problem: Consistent carbohydrate diet, Accu-Chek, hypoglycemia protocol, insulin protocol. (7) DVT prophylaxis Current Visit: Yes Status: Acute Plan to address problem: SCD to bilateral lower extremities while in bed, prophylactic anticoagulation (8) Advance care planning Current Visit: Yes Status: Acute Plan to address problem: Disease education conducted, care plan discussed, diagnoses discussed, prognosis discussed, patient knowledges understanding and agreement with care plan, patient is full code, +30 minutes. 10/26; patient was off oxygen. Patient does not complain any shortness of breath. 10/27; Covid test was negative. Patient was off oxygen. 6-minute walk was done and patient's oxygen saturation dropped to the eighties. Patient required home oxygen and discussed with case management. Case management said [facility] and [facility] to [facility] and [facility] not [facility] yet. Patient can be discharged once home oxygen is arranged by [facility]. - Patient Problems (1) Acute respiratory failure Current Visit: Yes Status: Acute Qualifiers: Respiratory failure complication: hypoxia Qualified Code(s): J96.01 - Acute respiratory failure with hypoxia (2) Diabetes Current Visit: Yes Status: Acute Qualifiers: Diabetes mellitus type: type 2 (3) HTN (hypertension) Current Visit: Yes Status: Acute Qualifiers: Hypertension type: primary hypertension Qualified Code(s): I10 - Essential (primary) hypertension (4) Hyperkalemia Current Visit: Yes Status: Acute (5) Hypertension Current Visit: Yes Status: Acute Qualifiers: Hypertension type: primary hypertension Qualified Code(s): I10 - Essential (primary) hypertension History Interval history: Patient was seen and evaluated this morning Patient said he is okay No shortness of breath Hospitalist Physical - Physical exam Narrative exam: Not in cardiopulmonary distress. The patient is obese. Vital signs as documented. Head exam is unremarkable. No scleral icterus . Neck is without jugular venous distension, thyromegaly, or carotid bruits. Lungs are clear to auscultation. Cardiac exam reveals regular rate and Rhythm. Abdominal exam reveals normal bowel sounds, nontender, no organomegaly. Extremities are nonedematous and both femoral and pedal pulses are normal. 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5-11.0) L 10/26/20 05:13 RBC 4.25 M/mm3 (3.65-5.03) 10/26/20 05:13 Hgb 12.6 gm/dl (11.8-15.2) 10/26/20 05:13 Hct 39.5 % (35.5-45.6) 10/26/20 05:13 MCV 93 fl (84-94) 10/26/20 05:13 MCH 30 pg (28-32) 10/26/20 05:13 MCHC 32 % (32-34) 10/26/20 05:13 RDW 15.9 % (13.2-15.2) H 10/26/20 05:13 Plt Count 164 K/mm3 (140-440) 10/26/20 05:13 Lymph % (Auto) 15.3 % (13.4-35.0) 10/26/20 05:13 [place] % (Auto) 2.9 % (0.0-7.3) 10/26/20 05:13 Eos % (Auto) 0.0 % (0.0-4.3) 10/26/20 05:13 Baso % (Auto) 0.1 % (0.0-1.8) 10/26/20 05:13 Lymph # (Auto) 0.6 K/mm3 (1.2-5.4) L 10/26/20 05:13 [place] # (Auto) 0.1 K/mm3 (0.0-0.8) 10/26/20 05:13 Eos # (Auto) 0.0 K/mm3 (0.0-0.4) 10/26/20 05:13 Baso # (Auto) 0.0 K/mm3 (0.0-0.1) 10/26/20 05:13 Seg Neutrophils % 81.7 % (40.0-70.0) H 10/26/20 05:13 Seg Neutrophils # 3.4 K/mm3 (1.8-7.7) 10/26/20 05:13 D-Dimer 307.40 ng/mlDDU (0-234) H 10/25/20 14:50 Sodium 141 mmol/L (137-145) 10/27/20 07:21 Potassium 4.3 mmol/L (3.6-5.0) 10/27/20 07:21 Chloride 104.9 mmol/L (98-107) 10/27/20 07:21 Carbon Dioxide 26 mmol/L (22-30) 10/27/20 07:21 Anion Gap 14 mmol/L 10/27/20 07:21 BUN 14 mg/dL (9-20) 10/27/20 07:21 Creatinine 0.7 mg/dL (0.8-1.3) L 10/27/20 07:21 Estimated GFR > 60 ml/min 10/27/20 07:21 BUN/Creatinine Ratio 20 % 10/27/20 07:21 Glucose 174 mg/dL (75-100) H 10/27/20 07:21 POC Glucose 207 mg/dL (70-105) H 10/27/20 12:20 Calcium 9.7 mg/dL (8.4-10.2) 10/27/20 07:21 Ferritin 51.1 ng/mL (30.0-300.0) 10/25/20 16:21 Total Bilirubin 0.40 mg/dL (0.1-1.2) 10/25/20 10:52 AST 34 units/L (5-40) 10/25/20 10:52 ALT 19 units/L (7-56) 10/25/20 10:52 Alkaline Phosphatase 78 units/L (35-129) 10/25/20 10:52 Lactate Dehydrogenase 235 units/L (91-180) H 10/25/20 16:21 Troponin T < 0.010 ng/mL (0.00-0.029) 10/25/20 15:07 C-Reactive Protein 0.60 mg/dL (0.00-1.30) 10/25/20 16:21 NT-Pro-B Natriuret Pep 737.3 pg/mL (0-900) 10/25/20 14:50 Total Protein 7.4 g/dL (6.3-8.2) 10/25/20 10:52 Albumin 3.9 g/dL (3.9-5) 10/25/20 10:52 Albumin/Globulin Ratio 1.1 % 10/25/20 10:52 Procalcitonin < 0.05 ng/mL (<0.15) 10/25/20 16:21 Coronavirus (PCR) Negative (Negative) 10/26/20 08:50 Microbiology: Microbiology 10/25/20 15:07 Peripheral/Venous Blood Culture - Preliminary NO GROWTH AFTER 24 HOURS 10/25/20 15:07 Peripheral/Venous Blood Culture - Preliminary NO GROWTH AFTER 24 HOURS Ohlder/IV: Voiding Method Toilet Active Medications - Current Medications Current Medications: Generic Name Dose Route Start Last Admin Trade Name Freq PRN Reason Stop Dose Admin Acetaminophen 650 mg 10/25/20 17:07 Acetaminophen 325 Mg Tab PO Q4H PRN Pain MILD(1-3)/Fever >100.5/SCHMIDT Albuterol 2.5 mg 10/25/20 17:07 Albuterol 2.5 Mg/3 Ml Nebu IH Q4HRT PRN Shortness Of Breath Ascorbic Acid 500 mg 10/25/20 22:00 10/27/20 09:32 Ascorbic Acid 500 Mg Tab PO 500 mg BID BETSY Administration Cholecalciferol 1,000 unit 10/26/20 10:00 10/27/20 09:32 Cholecalciferol (Vit D3) 1000 Unit (25 Mcg) Tab PO 1,000 unit QDAY BETSY Administration Heparin Sodium (Porcine) 5,000 unit 10/25/20 22:00 10/27/20 09:32 Heparin 5,000 Unit/1 Ml Vial SUB-Q 5,000 unit Q12HR BETSY Administration Hydromorphone HCl 0.5 mg 10/25/20 17:07 Hydromorphone 1 Mg/1 Ml Inj IV Q12H PRN Pain , Severe (7-10) Ceftriaxone Sodium 2 gm in 100 mls @ 200 mls/hr 10/26/20 03:00 10/27/20 02:32 Rocephin/Ns 2 Gm/100 Ml IV 10/29/20 14:59 200 mls/hr Q24H BETSY Administration Protocol Azithromycin 500 mg in 250 mls @ 250 mls/hr 10/26/20 14:00 10/26/20 13:38 Zithromax/Ns IV 10/29/20 14:59 250 mls/hr Q24H BETSY Administration Protocol Methylprednisolone Sodium Succinate 40 mg 10/25/20 18:00 10/27/20 02:32 Methylprednisolone Sod Succinate 40 Mg/1 Ml Inj IV 40 mg Q8H BETSY Administration Ondansetron HCl 4 mg 10/25/20 17:07 Ondansetron 4 Mg/2 Ml Inj IV Q8H PRN Nausea And Vomiting Oxycodone/Acetaminophen 1 tab 10/25/20 17:07 Oxycodone /Acetaminophen 5-325mg Tab PO Q12H PRN Pain, Moderate (4-6) Sodium Chloride 10 ml 10/25/20 22:00 10/27/20 09:33 Sodium Chloride 0.9% 10 Ml Flush Syringe IV 10 ml BID BETSY Administration Sodium Chloride 10 ml 10/25/20 17:07 Sodium Chloride 0.9% 10 Ml Flush Syringe IV PRN PRN LINE FLUSH Zinc Sulfate 220 mg 10/25/20 22:00 10/27/20 09:32 Zinc Sulfate 220 Mg Cap PO 220 mg BID BETSY Administration
[2020-10-27] MEDS: AZITHROMYCIN/NS 500 MG/250 ML 500 MG/250 ML BAG IV SCH (16:39)
[2020-10-28] MEDS: methylPREDNISolone Sod Succinate 40 MG/1 ML INJ IV SCH ×3 (03:01→17:38)
[2020-10-28] MEDS: cefTRIAXone/NS 2 GM/100 ML 2 GM/100 ML BAG IV SCH (03:01)
[2020-10-28] MEDS: ZINC SULFATE 220 MG CAP PO SCH (10:05)
[2020-10-28] MEDS: ASCORBIC ACID 500 MG TAB PO SCH (10:05)
[2020-10-28] MEDS: CHOLECALCIFEROL (VIT D3) 1000 UNIT (25 mcg) TAB PO SCH (10:05)
[2020-10-28] MEDS: HEPARIN 5,000 UNIT/1 ML VIAL SUB-Q SCH (10:06)
--- NOTE | 2020-10-28 11:57 | Discharge Summary ---
Providers - Providers Date of Admission: 10/25/20 17:07 Date of discharge: 10/28/20 Attending physician: KAREN ESTRADA MD Hospitalization Reason for admission: Pneumonitis, acute hypoxic respiratory failure Condition: Stable Hospital course: 69 YO Male with Obesity Hypoventilation Syndrome, HTN, DM, Gout, DVT no on therapeutic anticoagulation presents to ED for evaluation. Pt reports " I cannot catch my breath". Patient states that he has experienced shortness of breath over the past 10 days with persistently worsening symptoms over the same timeframe. Patient acknowledges decreased exercise tolerance, dry cough, fatigue, malaise, decreased exercise tolerance, as well as chest discomfort. Patient transported to [facility] via private vehicle for further care and evaluation of the aforementioned symptoms. The patient is seen and evaluated in the emergency department. All lab and imaging studies reviewed. Patient found to have a pulse oximetry of 76% on room air and was immediately placed on supplemental oxygen with mild improvement in symptoms and pulse oximetry. Patient underwent chest x-ray which revealed bilateral pneumonia. Patient admitted to medical floor and initiated on pneumonia protocol as well as coronavirus protocol. Patient denies fever, chills, palpitation, skin rash, recent ill contacts, or known exposure to COVID-19. Patient is currently fully vaccinated after receiving the [employer] vaccine. No prior admission for review. No medication listed for reconciliation at time of admission. Advanced care planning conducted in ED. (1) Acute respiratory failure Current Visit: Yes Status: Acute Qualifiers: Respiratory failure complication: hypoxia Qualified Code(s): J96.01 - Acute respiratory failure with hypoxia Plan to address problem: Chest x-ray, supplemental oxygen, pulse oximetry, nebulizer therapy, CTA chest, noninvasive positive pressure ventilation as clinically indicated. (2) Suspected 2019 novel coronavirus infection Current Visit: Yes Status: Acute Plan to address problem: Coronavirus protocol: Chest x-ray, CBC, CMP, IV antibiotic therapy, IV steroid therapy, vitamin C therapy, vitamin D therapy, zinc therapy, prone positioning while in bed, coronavirus PCR ordered and is pending at time of admission (3) Pneumonia Current Visit: Yes Status: Acute Plan to address problem: Pneumonia protocol: Chest x-ray, CBC, CMP, IV steroid therapy, IV antibiotic therapy, supplemental oxygen, pulse oximetry, blood culture. (4) Obesity hypoventilation syndrome Current Visit: Yes Status: Acute Plan to address problem: Balanced diet, increase physical activity at discharge, outpatient pulmonary follow-up for sleep study (5) HTN (hypertension) Current Visit: Yes Status: Acute Qualifiers: Hypertension type: primary hypertension Qualified Code(s): I10 - Essential (primary) hypertension Plan to address problem: Monitor blood pressure every shift, continue medical management (6) Diabetes Current Visit: Yes Status: Acute Plan to address problem: Consistent carbohydrate diet, Accu-Chek, hypoglycemia protocol, insulin pr otocol. (7) DVT prophylaxis Current Visit: Yes Status: Acute Plan to address problem: SCD to bilateral lower extremities while in bed, prophylactic anticoagulation (8) Advance care planning Current Visit: Yes Status: Acute Plan to address problem: Disease education conducted, care plan discussed, diagnoses discussed, prognosis discussed, patient knowledges understanding and agreement with care plan, jairo nt is full code, +30 minutes. 10/26; patient was off oxygen. Patient does not complain any shortness of breath. 10/27; Covid test was negative. Patient was off oxygen. 6-minute walk was done and patient's oxygen saturation dropped to the eighties. Patient required home oxygen and discussed with case management. [facility] and [facility] and [facility]. Patient can be discharged once home oxygen is arranged by [facility]. Patient was seen and evaluated this morning, patient was alert and oriented. No shortness of breath. Patient does not have any bacterial pneumonia and does not need antibiotics at discharge. Patient had 6-minute walk and required oxygen. Prescription with case management and patient can be discharged once home oxygen is arranged. Disposition: - TO HOME OR SELFCARE Final Discharge Diagnosis (Prints w/discharge instructions): Pneumonitis. 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 insulin use: without exterminator helper termite use Diabetes mellitus complication status: without complication Qualified Code(s): E11.9 - Type 2 diabetes mellitus without complications (3) HTN (hypertension) Status: Acute Qualifiers: Hypertension type: primary hypertension Qualified Code(s): I10 - Essential (primary) hypertension (4) Hyperkalemia Status: Acute (5) Hypertension Status: Acute Qualifiers: Hypertension type: primary hypertension Qualified Code(s): I10 - Essential (primary) hypertension Core Measure Documentation - Palliative Care Palliative Care/ Comfort Measures: Not Applicable - Core Measures Any of the following diagnoses?: none Exam - Physical Exam Narrative exam: Not in cardiopulmonary distress. The patient is morbidly obese. Vital signs as documented. Head exam is unremarkable. No scleral icterus . Neck is without jugular venous distension, thyromegaly, or carotid bruits. Lungs are clear to auscultation. Cardiac exam reveals regular rate and Rhythm. Abdominal exam reveals normal bowel sounds, nontender, no organomegaly. Extremities are nonedematous and both femoral and pedal pulses are normal. [employer]: Alert and oriented 3. 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 - Constitutional Vitals: Temp Pulse Resp BP Pulse Ox 98.2 F 70 20 156/77 91 10/28/20 04:07 10/28/20 04:07 10/28/20 04:07 10/28/20 04:07 10/28/20 04:07 Plan Activity: no restrictions Weight Bearing Status: Full Weight Bearing Diet: low salt, diabetic Follow up [facility]: [facility] [Other] - 7 Days
[2020-10-28 13:19] VITALS: BP 149/83
[2020-10-28] MEDS: AZITHROMYCIN/NS 500 MG/250 ML 500 MG/250 ML BAG IV SCH (13:42)
== END 2020-10-28 16:00 | disposition home or self-care (01) | DRG 193 ==
LOC: ED 08:58 → 3A 17:07
PROVIDERS: ADMIT Internal Medicine; ATTEND Internal Medicine
DX: J18.9 Pneumonia, unspecified organism (principal); J96.01 Acute respiratory failure with hypoxia; E66.2 Morbid (severe) obesity with alveolar hypoventilation; Z20.822 Contact with and (suspected) exposure to COVID-19; I10 Essential (primary) hypertension; E11.9 Type 2 diabetes mellitus without complications; M10.9 Gout, unspecified; E87.5 Hyperkalemia; Z68.37 Body mass index [BMI] 37.0-37.9, adult; Z86.718 Personal history of other venous thrombosis and embolism; Z82.49 Family history of ischemic heart disease and other diseases of the circulatory system; Z83.3 Family history of diabetes mellitus
CPT/HCPCS: 36415; 71046; 71275; 80048; 80053; 82728; 82962; 83615; 83880; 84145; 84484; 85025; 85379; 86140; 87040; 93005; 94640; 96365; 96367; 96368; 96372; 96375; G0378; J0456; J0696; J1100; J1644; J2920; Q9967; U0003